=== PATIENT | female | born 1990 | race Asian ===

== ENCOUNTER 2020-03-25 09:06 | Emergency (ER) | payer OTHER ==
[~2020-03-25] VITALS: Ht 152.4 cm; Wt 77.3 kg
[2020-03-25] MEDS ORDERED: STEROID INHALER IH (09:17)
[2020-03-25] MEDS ORDERED: ALBU8HFA IH (09:17)
[2020-03-25] MEDS ORDERED: ACETAMINOPHEN 500 MG TABLET PO ONE (09:45)
[2020-03-25 11:00] VITALS: BP 102/76
== END 2020-03-25 11:05 | disposition home or self-care (01) ==
LOC: EMS 09:21
DX: U07.1 COVID-19 (principal); J45.909 Unspecified asthma, uncomplicated; F12.90 Cannabis use, unspecified, uncomplicated